=== PATIENT | male | born 1995 | race Two or more races ===

== ENCOUNTER 2021-01-24 19:40 | Emergency (ER) | payer BC, OTHER ==
[~2021-01-24] VITALS: Ht 185.4 cm; Wt 95.3 kg
[2021-01-24] MEDS ORDERED: SODIUM CHLORIDE 0.9% 1,000 ML IV ONE (21:15)
[2021-01-24] MEDS ORDERED: KETOROLAC TROMETH 30 MG/ML 1ML VIAL IV ONE (21:15)
[2021-01-24] MEDS ORDERED: fentaNYL CITRATE 100 MCG/2 ML VL IV ONE (21:15)
[2021-01-24 23:00] VITALS: BP 133/60
== END 2021-01-25 04:24 | disposition home or self-care (01) ==
LOC: ER 19:40
DX: S52.125A Nondisplaced fracture of head of left radius, initial encounter for closed fracture (principal); S62.101A Fracture of unspecified carpal bone, right wrist, initial encounter for closed fracture; V86.59XA Driver of other special all-terrain or other off-road motor vehicle injured in nontraffic accident, initial encounter; Y93.89 Activity, other specified; Y92.89 Other specified places as the place of occurrence of the external cause; Y99.8 Other external cause status
CPT/HCPCS: 29125; 73080; 73110; 73130; 96374; 96375; 99284; J1885; J3010